=== PATIENT | male | born 1950 | race Caucasian/White ===

== ENCOUNTER 2017-04-15 08:28 | Emergency (ER) | payer BC ==
[~2017-04-15] VITALS: Ht 182.9 cm; Wt 96.4 kg
[~2017-04-15 08:28] MED LIST: NXM/40 PO
[2017-04-15 08:32] VITALS: TEMP 36.4; Ht 182.9 cm; Wt 96.4 kg
[2017-04-15 09:10] VITALS: BP 141/75; PULSE 98; O2SAT 97
--- NOTE | 2017-04-15 09:15 | DIAGNOSTIC IMAGING REPORT ---
HEAD WITHOUT CONTRAST (CT) CLINICAL HISTORY: 66 years-old Male presenting with RUE weakness. TECHNIQUE: Multidetector CT imaging of the head was performed without the use of intravenous contrast. IV contrast: None. A dose lowering technique was used consistent with the principles of ALARA (as low as reasonably achievable). COMPARISON: 08/02/2016. CT DOSE (mGy.cm): The estimated cumulative dose is 729.78 mGycm. FINDINGS: Lab Specialist topogram: Unremarkable. Ventricles and sulci normal in size. Brain parenchyma normal in appearance with preserved smith-white differentiation. No mass effect or midline shift. No hemorrhage or acute territorial infarct. No extra-axial fluid collection. Paranasal sinuses and mastoid air cells clear. Calvarium intact. IMPRESSION: 1. No acute intracranial pathology. Electronically signed by: Adam Sheehan M.D. 04/15/2017 9:14 AM Dictated Date/Time: 04/15/2017 9:12 AM
--- NOTE | 2017-04-15 09:19 | DIAGNOSTIC IMAGING REPORT ---
CT OF THE CERVICAL SPINE WITHOUT CONTRAST CLINICAL HISTORY: Right upper extremity weakness. COMPARISON STUDY: No previous studies for comparison. TECHNIQUE: Helical axial images of the cervical spine were obtained without IV contrast. Sagittal and coronal reconstructions were viewed. A dose lowering technique was utilized adhering to the principles of ALARA. FINDINGS: Alignment of the cervical spine is anatomic. Vertebral body heights are maintained. Craniocervical junction is intact. There is no acute cervical spine fracture. No suspicious osseous lesion is present. There is moderate disc space narrowing and osteophytosis at C6-C7 and to a lesser extent C5-C6. The central canal and neural foramen are suboptimally assessed by CT. However, there is no evidence for severe central canal stenosis by CT. There is multilevel neural foraminal stenosis, most pronounced at the C6-C7 level, more severe on the right. IMPRESSION: 1. No acute cervical spine fracture or subluxation. 2. Moderate multilevel degenerative disc disease and facet arthrosis of the cervical spine. 3. Suboptimal evaluation of central canal and neural foramen by CT. No evidence for severe central canal stenosis by CT. Multilevel neural foraminal stenosis, likely most pronounced at the right C6-C7 neural foramen. Electronically signed by: Familia Bartlett M.D. 04/15/2017 9:18 AM Dictated Date/Time: 04/15/2017 9:12 AM
--- NOTE | 2017-04-15 09:45 | EMERGENCY ROOM VISIT NOTE ---
History First contact with patient: 08:36 Chief Complaint: ARM PAIN Stated Complaint: RT ARM-DIFFICULTY MOVING History of Present Illness The patient is a 66 year old male who presents to the Emergency Room with complaints of abrupt onset of right upper extremity weakness. The patient reports that he rode his bicycle this morning, and had no symptoms while doing so. He did not notice any headache, neck pain, chest pain, shortness of breath or right upper extremity pains/burning/numbness. The patient reports that he was reading his morning paper, and when he went to turn the page, noticed that he couldn't move the arm, and had poor coordination. The patient reports that he has had notable improvement of the symptoms. He did not experience any pain , numbness or tingling. The patient reports that yesterday he did notice a sharp pain through the middle of his forearm that also quickly resolved. The patient and have not noticed any right facial droop, difficulty speaking/ heating/swallowing, right leg weakness or other concerning symptoms. The patient denies any prior history of neck problems, ulnar neuritis or carpal tunnel syndrome. The patient is usually a back or side sleeper. 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 He presents to the emergency department with his for evaluation. Review of Systems HEENT: Denies dizziness, visual problems, hearing loss, tinnitus. Denies difficulty swallowing or oral lesions. PULMONARY: Denies cough, shortness of breath, sputum production or hemoptysis. CARDIOVASCULAR: Denies chest pain, palpitations, dyspnea on exertion, orthopnea or peripheral edema. GASTROINTESTINAL: Denies diarrhea, constipation, nausea, vomiting, or abdominal pain. GENITOURINARY: Denies dysuria, frequency, urgency or nocturia. NEUROLOGIC: Denies history of epilepsy, CVA, TIA or chronic headaches. MUSCULOSKELETAL: Denies history of joint tenderness/swelling. SKIN: Denies rashes or lesions. PSYCHIATRIC: Denies history of depression or mental illness. ENDOCRINE: Denies history of diabetes or thyroid disorders. Social History Smoking Status: Never Smoker Current/Historical Medications No Active Prescriptions or Reported Meds Physical Exam Vital Signs Date Time Temp Pulse Resp B/P (MAP) Pulse Ox O2 Delivery O2 Flow Rate FiO2 04/15/17 09:10 98 18 141/75 97 Room Air 04/15/17 08:32 36.4 75 16 102/69 97 Room Air Pain Rating (0-10): 0 Physical Exam CONSTITUTIONAL: Healthy and well nourished. Alert and oriented X 3 with positive affect. Patient does not appear in any acute distress. HEENT: Normocephalic, atraumatic. Pupils equal, round and reactive to light and accommodation. Ears and nares are clear. EOMs intact. No facial droop. NECK: Full active range of motion without discomfort. No JVD or carotid bruits. LYMPHATICS: No cervical chain adenopathy. RESPIRATORY: Clear to auscultation bilaterally with no wheezing, crackles, rhonchi or stridor. CARDIOVASCULAR: Regular rate and rhythm with no murmurs, rubs or gallops. GASTROINTESTINAL: Bowel sounds present in all quadrants. Soft and nontender to palpation. 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 The patient has good right shoulder strength, biceps and triceps strength. Negative compression test and negative Tinel at the cubital tunnel. Negative Phalen's and negative Tinel at the carpal canal. Capillary refill is less than 2 seconds. Patient ambulates without antalgic or abnormal gait. INTEGUMENTARY: No rash or other significant dermatologic conditions noted. NEUROLOGIC: Cranial nerves II-XII grossly intact. No focal neurologic deficits noted. No ataxia noted. Normal finger to nose test. Negative pronator drift. Right deltoid sensation is intact. The patient has no other decreased sensation of the right upper extremity. Medical Decision & Procedures ER Provider Diagnostic Interpretation: Noncontrast CT of the head does not show any intracranial bleed, midline shift or mass effect. Radiologist report is as follows: HEAD WITHOUT CONTRAST (CT) CLINICAL HISTORY: 66 years-old Male presenting with RUE weakness. TECHNIQUE: Multidetector CT imaging of the head was performed without the use of intravenous contrast. IV contrast: None. A dose lowering technique was used consistent with the principles of ALARA (as low as reasonably achievable). COMPARISON: 08/02/2016. CT DOSE (mGy.cm): The estimated cumulative dose is 729.78 mGycm. FINDINGS: Child And Family Counselor topogram: Unremarkable. Ventricles and sulci normal in size. Brain parenchyma normal in appearance with preserved smith-white differentiation. No mass effect or midline shift. No hemorrhage or acute territorial infarct. No extra-axial fluid collection. Paranasal sinuses and mastoid air cells clear. Calvarium intact. IMPRESSION: 1. No acute intracranial pathology. Noncontrast CT of the cervical spine shows multilevel degenerative changes with right-sided neural foraminal stenosis at C6-7. No obvious acute fractures noted. Radiologist report is as follows: CT OF THE CERVICAL SPINE WITHOUT CONTRAST CLINICAL HISTORY: Right upper extremity weakness. COMPARISON STUDY: No previous studies for comparison. TECHNIQUE: Helical axial images of the cervical spine were obtained without IV contrast. Sagittal and coronal reconstructions were viewed. A dose lowering technique was utilized adhering to the principles of ALARA. FINDINGS: Alignment of the cervical spine is anatomic. Vertebral body heights are maintained. Craniocervical junction is intact. There is no acute cervical spine fracture. No suspicious osseous lesion is present. There is moderate disc space narrowing and osteophytosis at C6-C7 and to a lesser extent C5-C6. The central canal and neural foramen are suboptimally assessed by CT. However, there is no evidence for severe central canal stenosis by CT. There is multilevel neural foraminal stenosis, most pronounced at the C6-C7 level, more severe on the right. IMPRESSION: 1. No acute cervical spine fracture or subluxation. 2. Moderate multilevel degenerative disc disease and facet arthrosis of the cervical spine. 3. Suboptimal evaluation of central canal and neural foramen by CT. No evidence for severe central canal stenosis by CT. Multilevel neural foraminal stenosis, likely most pronounced at the right C6-C7 neural foramen. ED Course Patient history and physical exam were performed. Nurse's notes were reviewed. Vital signs were reviewed and were normal. 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 Otherwise, no other acute stroke findings are noted. I did discuss several different possibilities, including cervical radiculitis. His clinical exam is not concerning for carpal tunnel syndrome or ulnar neuritis. I did suggest performing a head and cervical spine CT, of which the patient was in agreement. Noncontrast CT of the head was normal. CT of the cervical spine does show multilevel degenerative changes with neural foraminal stenosis most pronounced at the right lower cervical region. At this point, the patient was advised that his symptoms are likely secondary to a cervical radiculitis. However, he was instructed to follow-up closely with his PCP within the next few days for reevaluation. He was instructed to return to the emergency department for any pronounced right sided body weakness, difficulty with speech/swallowing or other concerning symptoms. 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 I still feel that adequate workup was performed today, again with a low risk for CVA/TIA or other acute etiologies. The patient are also in agreement with today's workup. Medical Decision See previous section Medication Reconcilliation Current Medication List: was personally reviewed by me Blood Pressure Screening Patient's blood pressure: Normal blood pressure Impression Primary Impression: Right arm weakness Additional Impression: Degenerative disc disease, cervical Departure Information Dispostion Home / Self-Care Prescriptions No Active Prescriptions or Reported Meds Forms HOME CARE DOCUMENTATION FORM, IMPORTANT VISIT INFORMATION Patient Instructions My [facility] Additional Instructions Follow-up closely with your family doctor within the next 2-3 days. Return to the emergency department for any progressively worsening symptoms, including difficulty with speech, right facial weakness, right lower extremity weakness or other concerning symptoms. Problem Qualifiers
== END 2017-04-15 09:30 | disposition home or self-care (01) ==
LOC: C.EDB 08:30
DX: R29.898 Other symptoms and signs involving the musculoskeletal system (principal); M50.30 Other cervical disc degeneration, unspecified cervical region

== ENCOUNTER → 2017-04-23 | Outpatient (CLI) | payer BC ==
[2017-04-23 09:42] LABS: BASO % 0.6 %; BASO ABS # 0.03 K/uL (0-0.2); COMPLETE YES; EOS % 3.3 %; HEMATOCRIT 42.1 % (42-52); IG% 0.2 %; LYMPH % 38.3 %; LYMPH ABS # 1.98 K/uL (1.2-3.4); MEAN CELL VOLUME 89.4 fL (80-100); MEAN CORPUSCULAR HEMOGLOBIN 31.4 pg (25-34); MEAN CORPUSCULAR HGB CONC 35.2 g/dl (32-36); MEAN PLATELET VOLUME 9.9 fL (7.4-10.4); MONO % 7.4 %; NEUT % 50.2 %; PLATELET COUNT 188 K/uL (130-400); RED BLOOD COUNT 4.71 M/uL (4.7-6.1); WHITE BLOOD COUNT 5.17 K/uL (4.8-10.8)
[2017-04-23 09:55] LABS: ALT/SGPT 25 U/L (12-78); AST/SGOT 22 U/L (15-37); BLOOD UREA NITROGEN 22 mg/dl (7-18); BUN/CREATININE RATIO 19.7 (10-20); CALCIUM 8.9 mg/dl (8.5-10.1); CARBON DIOXIDE 27 mmol/L (21-32); CHLORIDE 111 mmol/L (98-107); GLUCOSE 107 mg/dl (70-99); SODIUM 143 mmol/L (136-145)
[2017-04-23 09:59] LABS: ALB/GLOB RATIO 1.4 (0.9-2); ALKALINE PHOSPHATASE 64 U/L (45-117)
== END | disposition home or self-care (01) ==
LOC: C.LAB 08:18
PROVIDERS: ATTEND Family Medicine
DX: G45.8 Other transient cerebral ischemic attacks and related syndromes (principal)

== ENCOUNTER → 2017-04-28 | Outpatient (CLI) | payer BC ==
[~2017-04-28] MED LIST changes: +GADAVIST IV PRN; -NXM/40 PO
--- NOTE | 2017-04-28 11:20 | DIAGNOSTIC IMAGING REPORT ---
BILATERAL CAROTID DOPPLER STUDY HISTORY: Transient ischemic attack. Right upper Extremity weakness. COMPARISON: None. TECHNIQUE: Real-time, grayscale, and color Doppler sonography of the carotid arteries was performed. Imaging reviewed in the transverse and longitudinal planes. All measurements were calculated based on NASCET criteria. FINDINGS: Antegrade flow is seen in the bilateral vertebral arteries. The brachial pressures are hemodynamically similar. Focal area of moderate, predominantly soft, atherosclerotic plaque within the right carotid bulb. The peak systolic velocity within the right ICA is 133 cm/s proximally at the level of the atherosclerotic plaque. The right systolic ratio is 1.5. The peak systolic velocity within the left ICA is 75 cm/s. The left systolic ratio is 0.8. IMPRESSION: 1. Approximately 50-69% stenosis within the proximal right internal carotid artery secondary to a focal area of moderate soft plaque. 2. No stenosis within the left carotid arteries. Electronically signed by: Rickey Buckner M.D. 04/28/2017 11:18 AM Dictated Date/Time: 04/28/2017 11:15 AM
--- NOTE | 2017-04-28 11:59 | DIAGNOSTIC IMAGING REPORT ---
BRAIN COMBO CLINICAL HISTORY: 66 years-old Male presenting with TIA, episode 2 weeks ago when unable to move right arm lasting for several hours, now resolved. TECHNIQUE: Multisequence, multiplanar MR imaging of the brain was performed before and after the administration of intravenous contrast. IV contrast: 9.5 L of Gadavist. COMPARISON: CT head from 04/15/2017. FINDINGS: Ventricles and sulci normal in size. Single abnormal focus of T2/FLAIR hyperintensity at the smith-white junction matter of the left frontoparietal region, which demonstrates enhancement (series 8 image 20). This may be along the precentral gyrus. This lesion is minimally diffusion hyperintense (series 4 image 20) but without corresponding low signal intensity on ADC to suggest restricted diffusion (series 400 and image 20). No mass effect or midline shift. No restricted diffusion to suggest acute ischemia. No hemorrhage. No extra-axial fluid collection. T2 skull base flow voids preserved. Bone marrow signal intensity within the calvarium within normal limits. Mild mucosal thickening in the ethmoid air cells. IMPRESSION: 1. Nonspecific focus of enhancement in the left frontoparietal region, possibly in the precentral gyrus. Differential considerations for this lesion include subacute infarct in metastatic disease among other etiologies. Short-term follow-up contrast enhanced MR brain recommended. Electronically signed by: Adam Sheehan M.D. 04/28/2017 11:58 AM Dictated Date/Time: 04/28/2017 11:50 AM
== END | disposition home or self-care (01) ==
LOC: C.ULTR 10:08
PROVIDERS: ATTEND Family Medicine
DX: G45.9 Transient cerebral ischemic attack, unspecified (principal)

== ENCOUNTER → 2017-08-06 | Outpatient (CLI) | payer OTHER ==
[~2017-08-06] MED LIST changes: -GADAVIST IV PRN; +OPTIRAY 320 IV PRN
--- NOTE | 2017-08-07 08:18 | DIAGNOSTIC IMAGING REPORT ---
CT HEAD ANGIO WITH CONTRAST CLINICAL HISTORY: Cerebral infarction TECHNIQUE: CT angiography of the head was performed in a dynamic helical fashion during intravenous administration of 119 cc of Optiray 320. A dose lowering technique was utilized adhering to the principles of ALARA. CT DOSE: COMPARISON STUDY: MRI the brain dated 05-13 FINDINGS: There are no lesion suspicious for aneurysm. There are no major intracranial branch occlusions. The dural venous sinuses appear patent. The focus of enhancement within the left frontoparietal region described on the prior MRI, is difficult to visualize on the current CT scan. IMPRESSION: Normal MR angiography of the brain. Electronically signed by: Gary Lloyd M.D. 08/06/2017 3:59 PM Dictated Date/Time: 08/06/2017 3:51 PM
--- NOTE | 2017-08-07 08:18 | DIAGNOSTIC IMAGING REPORT ---
NECK CTA HISTORY: Stroke symptoms. TECHNIQUE: Multiaxial CT images of the neck were performed following the intravenous administration of contrast to evaluate the major cervical vessels. Maximum intensity projection images were also obtained. All measurements were calculated based on NASCET criteria. A dose lowering technique was utilized adhering to the principles of ALARA. COMPARISON STUDY: Carotid Doppler study 04/28/2017. FINDINGS: The aortic arch and proximal great vessels are widely patent. The bilateral common carotid and vertebral arteries are widely patent. No significant stenosis within the left internal carotid artery. Tiny linear filling defect seen within the left carotid bulb which may represent a small focus of soft plaque. There is moderate calcified and noncalcified plaque seen within the right carotid bulb resulting in 50-60% stenosis. No evidence for carotid or vertebral artery dissection. The internal jugular veins are patent. IMPRESSION: 1. Approximately 50-60% stenosis within the right carotid bulb due to the calcified and noncalcified moderate plaque. 2. No significant stenosis seen within the bilateral vertebral arteries or left carotid arteries. Electronically signed by: Rickey Buckner M.D. 08/06/2017 3:59 PM Dictated Date/Time: 08/06/2017 3:54 PM
== END | disposition home or self-care (01) ==
LOC: C.CTS 14:45
PROVIDERS: ATTEND Psychiatry & Neurology Neurology
DX: I63.9 Cerebral infarction, unspecified (principal); G93.9 Disorder of brain, unspecified